=== PATIENT | female | born 1990 | race Two or more races ===

== ENCOUNTER 2019-12-04 14:41 | Emergency (ER) | payer OTHER ==
[2019-12-04 14:53] VITALS: PULSE 74; RESP 18
[2019-12-04] MEDS ORDERED: MORPHINE SULFATE 4 MG/ML SYRINGE IVP STA (15:31)
[2019-12-04] MEDS ORDERED: ONDANSETRON 4 MG/2 ML VIAL IVP STA (15:31)
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
[2019-12-04 16:06] LABS: Basophils # (A) 0.1 k/uL (0-0.2); Basophils % (A) 1 %; Eosinophils # (A) 0.3 k/uL (0-0.7); Eosinophils % (A) 2 %; HCT 49.2 % (34.0-46.0); HGB 16.4 gm/dL (11.4-16.0); Lymphocytes # (A) 2.6 k/uL (1.0-4.8); Lymphocytes % (A) 14 %; MCH 30.7 pg (25.0-35.0); MCHC 33.3 g/dL (31.0-37.0); Mean Platelet Volume 7.2; Monocytes # (A) 0.9 k/uL (0-1.0); Monocytes % (A) 5 %; Neutrophils # (A) 15.1 k/uL (1.3-7.7); Neutrophils % (A) 79 %; Platelet Count 390 k/uL (150-450); RBC 5.35 m/uL (3.80-5.40); RDW 12.5 % (11.5-15.5); WBC 19.1 k/uL (3.8-10.6)
[2019-12-04 16:15] LABS: ALT 46 U/L (4-34); AST 43 U/L (14-36); African American GFR (CKD) >90 (>60 ml/min/1.73 sqM); Albumin 4.5 g/dL (3.5-5.0); Alkaline Phosphatase 80 U/L (38-126); Anion Gap 11 mmol/L; Blood Urea Nitrogen 10 mg/dL (7-17); Calcium 9.7 mg/dL (8.4-10.2); Carbon Dioxide 26 mmol/L (22-30); Chloride 101 mmol/L (98-107); Glucose 102 mg/dL (74-99); Non-African American GFR(CKD) 87 (>60 ml/min/1.73 sqM); Potassium 3.9 mmol/L (3.5-5.1); Sodium 138 mmol/L (137-145); Total Bilirubin 0.6 mg/dL (0.2-1.3); Total Protein 8.2 g/dL (6.3-8.2)
[2019-12-04 16:21] LABS: Partial Thromboplastin Time 23.6 sec (22.0-30.0)
[2019-12-04] MEDS ORDERED: SODIUM CHLORIDE 0.9% 1,000 ML IV ONE (16:29)
[2019-12-04 16:41] LABS: Appearance,Urine Clear (Clear); Bilirubin,Urine Negative (Negative); Blood,Urine Negative (Negative); Color,Urine Light Yellow; Glucose,Urine (UA) Negative (Negative); Ketones,Urine Negative (Negative); Leukocyte Esterase,Urine Negative (Negative); Nitrite,Urine Negative (Negative); Protein,Urine Negative (Negative); Specific Gravity,Urine 1.006 (1.001-1.035); Urobilinogen,Urine <2.0 mg/dL (<2.0)
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
--- NOTE | 2019-12-04 16:42 | XR ---
EXAMINATION TYPE: XR ankle limited bilateral DATE OF EXAM: 12/04/2019 CLINICAL HISTORY: Pain TECHNIQUE: Frontal, lateral and oblique images of the bilateral ankle are obtained. COMPARISON: None. FINDINGS: Ankle mortise is preserved. Small calcaneal spur involving the plantar surface of the right ankle. Slight cortical offset of the posterior margin the tibia on the right lateral view. Remaining osseous structures appear intact. IMPRESSION: 1. There appears to be slight cortical offset on the lateral view of the right ankle. Recommend CT of the right ankle to exclude fracture.
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
[2019-12-04 17:55] VITALS: BP 128/78; TEMP 98.4
[2019-12-04] MEDS ORDERED: ACET/COD 300 MG/30 MG STARTER PACK 6 TAB BTL PO STA (18:09)
== END 2019-12-04 19:11 | disposition home or self-care (01) ==
LOC: EC 14:41
DX: S82.891A Other fracture of right lower leg, initial encounter for closed fracture (principal); S20.219A Contusion of unspecified front wall of thorax, initial encounter; S30.1XXA Contusion of abdominal wall, initial encounter; S80.812A Abrasion, left lower leg, initial encounter; S50.812A Abrasion of left forearm, initial encounter; S50.811A Abrasion of right forearm, initial encounter; Z88.8 Allergy status to other drugs, medicaments and biological substances; F17.200 Nicotine dependence, unspecified, uncomplicated; V67 Occupant of heavy transport vehicle injured in collision with fixed or stationary object; Y92.410 Unspecified street and highway as the place of occurrence of the external cause
CPT/HCPCS: 99285; 96374; 96375; 96361; 29515; 36415; 93005; 80053; 83605; 85025; 85610; 85730; 81003; 81025; 73600; 71250; 74176; 73700; J2270; J2405